=== PATIENT | male | born 1955 | race Caucasian/White ===

== ENCOUNTER 2018-07-20 07:14 | Inpatient (IN) ==
--- NOTE | 2018-06-23 08:39 | PAT Medication Instructions ---
Medication Instructions Date of Service June 23, 2018 Home Medications coenzyme Q10 [CoQ-10] 100 mg PO HS ibuprofen [Advil] 600 mg PO QID PRN lisinopril-hydrochlorothiazide 1 tab PO HS meloxicam [Mobic] 15 mg PO DAILY PRN metoprolol tartrate 25 - 50 mg PO Q8H PRN simvastatin 20 mg PO HS ASK your surgeon for instructions ibuprofen [Advil] 600 mg PO QID PRN meloxicam [Mobic] 15 mg PO DAILY PRN STOP taking 2 weeks before surgery coenzyme Q10 [CoQ-10] 100 mg PO HS Take morning of surgery With a small sip of water, OTHERWISE NOTHING TO EAT OR DRINK AFTER MIDNIGHT: metoprolol tartrate 25 - 50 mg PO Q8H PRN (if needed) Take evening before surgery lisinopril-hydrochlorothiazide 1 tab PO HS metoprolol tartrate 25 - 50 mg PO Q8H PRN (if needed) simvastatin 20 mg PO HS Other Notes If you have any questions please call us at [phone] or [phone] or [phone] or [phone]
--- NOTE | 2018-06-23 11:30 | Anesthesiology Consultation ---
Date of Service June 23, 2018 Assessment & Plan (1) Encounter for pre-operative examination: Chart Review Chart Review: Acceptable Risk for Surgery and Patient seen in Pre Admission Testing Cardiac Clearance 07/15/18: "He is currently stable and asymptomatic from a cardiovascular standpoint with no anginal symptoms occurring at greater than 4 metastases of activity. He has no evidence of CHF or significant valvular abnormality. His heart rate and blood pressure well controlled. Given this information, the patient is at an acceptable risk to proceed with upcoming surgery without any additional cardiovascular testing or intervention." PCP clearance 07/03: R CSI class I risk. 3.9% 30-day risk of , DE, or cardiac arrest. Acceptable risk for surgery pending clearance from cardiology visit on 07/15/2018. Teaching & Discussion Instructed NPO after midnight before surgery, except medications with 15 cc of water. Medication instructions provided according to the PAT guidelines. History Surgery Operation Date: 07/20/18 07:00 Proposed Procedures p Left Anterior Total Hip Arthroplasty - Darrell Alonzo DO Operation Date: 07/20/18 13:00 Proposed Procedures p Left Total Hip Arthroplasty Uncemented - Darrell Alonzo DO Height/Weight Height: 6 ft 1 in Weight: 97.9 kg Allergies Allergy/AdvReac Type Severity Reaction Status Date / Time No Known Allergies Allergy Verified 06/19/18 10:25 Medications Home Medications Medication Instructions Recorded Confirmed Last Taken coenzyme Q10 [CoQ-10] 100 mg PO HS 06/19/18 06/19/18 Unknown ibuprofen [Advil] 600 mg PO QID PRN 06/19/18 06/19/18 Unknown lisinopril-hydrochlorothiazide 1 tab PO HS 06/19/18 06/19/18 Unknown meloxicam [Mobic] 15 mg PO DAILY PRN 06/19/18 06/19/18 Unknown metoprolol tartrate 25 - 50 mg PO Q8H PRN 06/19/18 06/19/18 Unknown simvastatin 20 mg PO HS 06/19/18 06/19/18 Unknown Past Medical History Medical History Asthma HX EXERCISE INDUCED-NOT A RECENT PROBLEM-NO INHALERS BPH (benign prostatic hyperplasia) GERD (gastroesophageal reflux disease) Hyperlipidemia Hypertension Migraine HX Osteoarthritis Palpitation FOLLOWS WITH DR HOBBS. SYMPTOMATIC PVCS, METOPROLOL PRN. Past Family History Family History Uncle Family history of diabetes mellitus Past Surgical History Surgical History Cancer LEFT WRIST-REMOVAL GROWTH History of colonoscopy X 2 History of thymectomy 9 YRS AGO-BENIGN History of tonsillectomy Past Anesthesia History No Hx of Anesthesia Complications and No Family Hx of Anesthesia Complications *pt recalls having ineffective epidural for post op pain with thymectomy ~9 yrs ago. History of PONV No Motion Sickness Screening History of Motion Sickness: No Social History Smoking Status: Former smoker Do You Dip or Chew Tobacco: No Smoking End Date: QUIT 32 YRS AGO Hx Alcohol Use: Yes Alcohol type: beer, wine and hard liquor alcohol intake frequency: a few times a week Hx Substance Use: No substance use type: marijuana ("very rarely") Exercise / Class Metabolic Activity 1 > 8 Run/Swim/Ski/Tennis (Pt reports being very active, recently more limited by hip pain) Review of Systems Pt denies any recent chest pain, shortness of breath, cough, fever. +URI in 05/2018, "just starting to feel back to 100%; +palpitations once/wk Physical Exam Vital Signs BP: 120/80 P: 59bpm SPO2: 96% RA T: 98.0 F R: 16 ENMT Mouth: + dental restorations (one cap on molar); no chipped teeth and no loose teeth Thyromental Distance: > or= 3.5 Finger Breadths (3.5) Mallampati Class: I Mouth / Teeth: 1. crown Neck normal visual inspection; neck extension not limited Respiratory normal respiratory effort Auscultation: lungs clear to auscultation bilaterally Cardiovascular Rate/Rhythm: regular rate and regular rhythm Heart Sounds: no murmur Vessels: no carotid bruit Extremities: no edema Testing Electrocardiogram Date: 10/29/17 Findings: + SB @ (49 with 1st degree AV block and occ. PACs) Chest X-Ray Date: 06/23/18 Findings: + NAD Stress Test Date: 07/11/14 Type: exercise Resting EF: 75% Negative exercise stress echocardiogram for ischemia at 75% maximum predicted heart rate. The patient complained of no exercise-induced chest pain. There were no EKG changes. Normal blood pressure response with exercise. There was no significant ectopy at rest and with exercise. The baseline echo notes normal left ventricular function with mild mitral regurgitation. Laboratory Results 06/23/18 11:39 06/23/18 11:39 Blood Type B Positive 06/23/18 11:39 Antibody Screen NEGATIVE 06/23/18 11:39 PT 10.3 Seconds (9.0-12.0) 06/23/18 11:39 INR 1.0 (0.9-1.1) 06/23/18 11:39 APTT 24.6 Seconds (21.0-31.0) 06/23/18 11:39 Hemoglobin A1c 5.0 % (4.5-5.6) 06/23/18 11:39 Urine Color Dark Yellow 06/23/18 Unknown Urine Appearance Clear (Clear) 06/23/18 Unknown Urine pH 6.0 (4.5-7.5) 06/23/18 Unknown Ur Specific Pratt 1.027 (1.000-1.030) 06/23/18 Unknown Urine Protein Negative (Negative) 06/23/18 Unknown Urine Glucose (UA) Negative (Negative) 06/23/18 Unknown Urine Ketones Trace (Negative) H 06/23/18 Unknown Urine Nitrite Negative (Negative) 06/23/18 Unknown Ur Leukocyte Esterase Negative (Negative) 06/23/18 Unknown 06/23/18 Unknown Urine Culture - Final Urine,Clean Catch No growth - less than 1,000 colonies/mL.
--- NOTE | 2018-06-23 12:24 | XRay Report ---
XR chest Pre-admission PA/Lat CLINICAL HISTORY: Preoperative evaluation. COMPARISON STUDY: Chest radiograph June 20, 2012. FINDINGS: There are median sternotomy wires. No pneumothorax or pleural effusion is noted. There is n o consolidation or evidence for pulmonary edema. Cardiomediastinal silhouette is stable. Appearance o f the chest is unchanged. IMPRESSION: No acute cardiopulmonary findings. Electronically signed by: Norbert Ramirez M.D. 06/23/2018 12:23 PM
[2018-06-23 13:29] LABS: Basophils # (auto) 0.01 K/uL (0-0.2); Basophils % (auto) 0.2 %; Eosinophils # (auto) 0.23 K/uL (0-0.5); Eosinophils % (auto) 4.5 %; Hematocrit (blood only) 40.9 % (42-52); Hemoglobin 14.4 g/dL (14.0-18.0); Immature Granulocytes # (auto) 0.01 K/uL (0.00-0.02); Immature Granulocytes % (auto) 0.2 %; Lymphocytes # (auto) 1.41 K/uL (1.2-3.4); Lymphocytes % (auto) 27.6 %; Mean Corpuscular Hgb Conc 35.2 g/dL (32-36); Mean Corpuscular Volume 89.1 fL (80-100); Mean Platelet Volume 10.2 fL (7.4-10.4); Monocytes # (auto) 0.46 K/uL (0.11-0.59); Neutrophils # (auto) 2.98 K/uL (1.4-6.5); Neutrophils % (auto) 58.5 %; Platelet Count 222 K/uL (130-400); RDW Coefficient of Variation 11.9 % (11.5-14.5); RDW Standard Deviation 38.4 fL (36.4-46.3); Red Blood Count 4.59 M/uL (4.7-6.1)
[2018-06-23 13:32] LABS: Appearance Urine Clear (Clear); Bilirubin Urine Negative (Negative); Blood Urine Negative (Negative); Color Urine Dark Yellow; Glucose Urine UA Negative (Negative); Ketones Urine Trace (Negative); Leukocyte Esterase Urine Negative (Negative); Nitrite Urine Negative (Negative); Protein Urine Negative (Negative); Specific Gravity Urine 1.027 (1.000-1.030); Urobilinogen Urine Negative (Negative)
[2018-06-23 13:43] LABS: Partial Thromboplastin Ratio 0.9; Partial Thromboplastin Time 24.6 Seconds (21.0-31.0); Prothrombin Time 10.3 Seconds (9.0-12.0)
[2018-06-23 13:58] LABS: Albumin Level 3.8 gm/dl (3.4-5.0); BUN Creatinine Ratio 16.1 (10-20); Calcium 8.3 mg/dl (8.5-10.1); Creatinine Clr Calc Pharmacy 81.7 ml/min; Est GFR (African American) 80.3; Est GFR (Non-African American) 69.3
[2018-06-23 14:05] LABS: Estimated Average Glucose 97 mg/dl
--- NOTE | 2018-07-19 10:17 | History & Physical Report ---
Date of Service July 19, 2018 Assessment & Plan (1) Degenerative joint disease (DJD) of hip: I have indicated the patient for left anterior total hip replacement. The risks, benefits and complications of surgery were explained to the patient which include but not limited to infection, acute blood loss, DVT/PE, injury to nerves, vessels, bone, soft tissue, arthrofibrosis, chronic pain, failure of the prosthesis, hip dislocation, leg length discrepancy, need for additional surgery, cardiac and pulmonary events and . The patient wished to proceed with surgery and informed consent was obtained at this time. We will plan for ASA 325mg BID post-operatively for DVT prophylaxis. Upon discharge the patient will be discharged home with home health services. Appropriate clearances by PCP and cardiology were obtained. History of Present Illness Chief Complaint: Left hip pain/djd Primary Care Provider: Allen Bowman The patient is a 63 year old male who presents with complaints of severe left hip pain and DJD. The patient has failed outpatient conservative treatments to this point which included NSAIDS and a home exercise, walking program. Patient had previous declined IA hip injections. The patient's pain and limited function have progressed to the point where they severely hinder their activities of daily living and they no longer tolerate exercise programs. They are requesting to proceed with total hip replacement surgery. Allergies Allergy/AdvReac Type Severity Reaction Status Date / Time No Known Allergies Allergy Verified 06/19/18 10:25 Home Medications Home Medications Medication Instructions Recorded Confirmed Type coenzyme Q10 [CoQ-10] 100 mg PO HS 06/19/18 07/20/18 History ibuprofen [Advil] 600 mg PO QID PRN 06/19/18 07/20/18 History lisinopril-hydrochlorothiazide 1 tab PO HS 06/19/18 07/20/18 History meloxicam [Mobic] 15 mg PO DAILY PRN 06/19/18 07/20/18 History metoprolol tartrate 25 - 50 mg PO Q8H PRN 06/19/18 06/19/18 History simvastatin 20 mg PO HS 06/19/18 07/20/18 History Past Med/Surg History Medical History Asthma HX EXERCISE INDUCED-NOT A RECENT PROBLEM-NO INHALERS BPH (benign prostatic hyperplasia) GERD (gastroesophageal reflux disease) Hyperlipidemia Hypertension Migraine HX Osteoarthritis Palpitation FOLLOWS WITH DR HOBBS. SYMPTOMATIC PVCS, METOPROLOL PRN. Surgical History Cancer LEFT WRIST-REMOVAL GROWTH History of colonoscopy X 2 History of thymectomy 9 YRS AGO-BENIGN History of tonsillectomy Family History Uncle Family history of diabetes mellitus Social History Preferred Language: [place] Communication Ability: Effective Side Door Worker Required: No Beliefs That Will Affect Care: None Current Living Situation: Spouse Other Information That Helps Us Care for You: No Feels Safe at Home: Yes Safety Concerns: Feels Safe At This Time Smoking Status: Former smoker Hx Alcohol Use: Yes Hx Substance Use: No Review of Systems All systems reviewed & are unremarkable except as noted in HPI & below Physical Exam Physical Exam: LLE NVSI +EHL/FHL/TA/GS SILT grossly, +2 DP pulse, compartments soft NT, limited painful ROM of the hip. Antalgic gait. Constitutional: WD/WN, vitals as above Eyes: PERRL, conjunctivae normal, anicteric sclerae ENMT: external ear and nose normal, oropharynx normal Neck: trachea midline, no thyromegaly Respiratory: normal respiratory effort, lungs clear to auscultation Cardiovascular: RRR, no murmur, no edema Gastrointestinal (Abdomen): normal bowel sounds, soft, nontender, no hepatosplenomegaly Musculoskeletal: no cyanosis or clubbing, extremities motor strength 5/5 Skin: no rashes, warm and dry Neurologic: patellar DTR's 2+ bilat, sensation intact Psychiatric: A+Ox3, euthymic affect Lymphatic: no cervical or axillary lymphadenopathy Results & Data Diagnostic Findings Multiple views of the hip demonstrates severe DJD with complete loss of the joint space. +osteophytes, +sclerosis, +subchondral cysts.
[~2018-07-20 07:14] MED LIST: ACETAMINOPHEN 500 MG TAB PO SCH; CEFAZOLIN 2000MG 2,000 MG/15 ML SYR IV SCH; CeleBREX 200 MG CAP PO SCH; FAMOTIDINE 20 MG TAB PO SCH; GABAPENTIN 300 MG PO SCH; LR 500ML BOLUS, THEN 15ML/HR IV SCH; MIDAZOLAM HCL 1 MG/ML 2ML VIAL ONE; ROPIVACAINE 0.5% HCL/PF 150 MG, BUPIVACAINE 0.5% MPF 30 ML, EPINEPHrine 30MG/30ML (OR U... INFIL SCH; TRANEXAMIC ACID 1,000 MG **IV Intra-op IV SCH; TRANEXAMIC ACID 1,000 MG **IV Pre-op IV SCH; dexAMETHasone 4 MG TAB PO SCH; fentaNYL citrate 100 MCG/2 ML VIAL ONE
[2018-07-20] MEDS ORDERED: BACITRACIN INJ 50,000 UNIT VIAL ONE (07:23)
[2018-07-20] MEDS ORDERED: ORTHO JOINT ANESTHETIC ONE (07:23)
[2018-07-20] MEDS ORDERED: POVIDONE-IODINE OP SOLN 30 ML BTL ONE (07:23)
[2018-07-20] MEDS ORDERED: BUPIVACAINE 0.5 % 5 MG/1 ML PF 10ML VIAL ONE (07:26)
[2018-07-20] MEDS ORDERED: ePHEDrine sulfate 50 MG/ML AMP IV PRN (08:07)
[2018-07-20] MEDS ORDERED: ATROPINE SULFATE 0.1 MG/ML 10ML SYR IV PRN (08:07)
[2018-07-20] MEDS ORDERED: fentaNYL citrate 100 MCG/2 ML VIAL IV PRN (08:07)
[2018-07-20] MEDS ORDERED: LIDOCAINE HCL 2% 2 ML VIAL/AMP(20MG/ML) INFIL ONE (08:24)
[2018-07-20] MEDS ORDERED: ONDANSETRON INJ 2 MG/ML 2 ML VIAL ONE (08:24)
[2018-07-20] MEDS ORDERED: PROPOFOL IV EMULSION 10 MG/ML 20 ML VIAL IV ONE ×4 (08:24→11:08)
--- NOTE | 2018-07-20 08:52 | History & Physical Bridge Note ---
Date of Service July 20, 2018 History & Physical Bridge Note I have examined the patient, reviewed the History & Physical and in the interval since the performance of the History & Physical I have noted the following changes of clinical significance: no changes noted
[2018-07-20] MEDS ORDERED: ePHEDrine sulfate 50 MG/ML SYR ONE (09:24)
[2018-07-20] MEDS ORDERED: PHENYLEPHRINE 100MCG/ML 5ML SYR ONE (09:43)
--- NOTE | 2018-07-20 11:04 | Post Operative Brief Note ---
Immediate Post Op Note v1 Date of Surgery July 20, 2018 Pre & Post Diagnosis Operation Date: 07/20/18 09:00 Pre-Op Diagnosis: Left Hip Degenerative Joint Disease Post-Op Diagnosis: Left Hip Degenerative Joint Disease Operation Date: 07/20/18 13:00 <No data on this case meets the specified criteria> Procedure Operation Date: 07/20/18 09:00 Actual Procedures p Left Anterior Total Hip Arthroplasty--Uncemented(Left) - Darrell Alonzo DO Operation Date: 07/20/18 13:00 <No data on this case meets the specified criteria> Surgeon Darrell Alonzo DO Fiber Optic Technician Addy Brandon Estimated Blood Loss 105 Findings Consistent with Post-Op Diagnosis Fluids 1400 cc LR Specimens femoral head Anesthesia Type Spinal MAC Complications none Disposition Disposition: Recovery Room Overlapping Procedure I was present for: the critical portions of procedure. I was immediately available: during the entire case. Back up surgeon: was not required during procedure.
--- NOTE | 2018-07-20 11:08 | Fluoroscopy Report ---
FL hip LT 1V HISTORY: 63 years-old Male LEFT ANTERIOR HIP left hip total joint arthroplasty COMPARISON: None available TECHNIQUE: 2 spot fluoroscopic images of the left hip were obtained utilizing 51.0 seconds fluoroscop y time FINDINGS: Left hip total joint arthroplasty demonstrates satisfactory alignment. Expected postoperative soft ti ssue swelling with deep tissue air. Overlying surgical drainage catheter noted. No acute fracture raji ntified. Advanced osteoarthritis of the right hip is partially imaged. IMPRESSION: Left hip total joint arthroplasty demonstrates satisfactory alignment. The above report was generated using voice recognition software. It may contain grammatical, syntax o r spelling errors. Electronically signed by: Frederick Raman M.D. 07/20/2018 11:07 AM
--- NOTE | 2018-07-20 11:28 | Operative Report ---
Post Operative Report Pre & Post Diagnosis Operation Date: 07/20/18 09:00 Pre-Op Diagnosis: Left Hip Degenerative Joint Disease Post-Op Diagnosis: Left Hip Degenerative Joint Disease Operation Date: 07/20/18 13:00 <No data on this case meets the specified criteria> Procedure Operation Date: 07/20/18 09:00 Actual Procedures p Left Anterior Total Hip Arthroplasty--Uncemented(Left) - Darrell Alonzo DO Operation Date: 07/20/18 13:00 <No data on this case meets the specified criteria> Surgeon Darrell Alonzo DO Tablet Repair Addy Brandon Estimated Blood Loss 105 Findings Consistent with Post-Op Diagnosis Specimens femoral head Anesthesia Type Spinal MAC Complications none Disposition Disposition: Recovery Room Indications The patient is a 63-year-old male who presents with severe progressive left hip DJD who has failed outpatient conservative treatments. I indicated the patient for a anterior total hip replacement and the risks and benefits were explained in detail which include but not limited to infection, bleeding, blood clot, damage to surrounding bone, nerves, vessels, soft tissue, hip dislocation, failure of the prosthesis, leg length discrepancy, need for additional surgery and . The patient agreed to proceed with replacement of the hip and informed consent was obtained. Appropriate clearances were obtained. Description of Procedure COMPONENTS USED: [employer] hip system: Acetabulum size 54, femur size 10 high offset, femoral head 36-3, liner 54 x 36, acetabular screw 25 mm. DESCRIPTION OF PROCEDURE: Following satisfactory spinal anesthesia, the patient was placed supine on the OR table. The right leg was placed in the well leg oleary and the left leg in the traction device. The left leg was prepared with ChloraPrep and draped sterilely. A surgical timeout was performed, patient identified in site ayana confirmed. Appropriate antibiotics were given. A standard anterior approach in the interval between the sartorius and tensor muscles was performed. Dissection was carried down through subcutaneous tissues. Electrocautery was utilized for hemostasis. Circumflex femoral v essels were identified, tied and ligated. The anterior capsular fat pad was removed and the capsulotomy was performed revealing the arthritic femoral neck and head. A femoral neck cut was made with reciprocating saw and the bone fragments removed. The acetabular self-retraining retractor was placed. Acetabular reaming was completed under fluoroscopic guidance, a 54 shell was impacted into an anatomic position and secured with a dome screw. Local anesthetic was placed and following irrigation, the polyethylene liner was placed. The femur was placed into position of external rotation, extension and adduction. Femoral canal was prepared up to the size 10 high offset. Trial reduction with a 36-3 neck length head showed good soft tissue tension, leg lengths restored, and good fit and fill of the proximal canal using fluoroscopic landmarks. The hip was dislocated. The trial component was removed. The final implant was placed. The hip was irrigated with sterile saline solution and reduced. A Betadine soak was performed. After 3 minutes, the hip was once more irrigated with copious sterile saline solution with bacitracin. Aixa-incisional soft tissue was injected utilizing [place] [employer] which includes a combination of Ropivicaine 0.5% 150mg, Bupivicaine 0.5%/Epinephrine 1:200,000 30ml, Toradol 30mg, Dexamethasone 4mg, Ketamine 10mg, Clonidine 100mcg and NSS 30ml solution. The capsule was then closed with 1-0 Vicryl interrupted figure of eight sutures. The fascia was closed with a running suture of #1 Vicryl, the subcutaneous tissues with 2-0 Vicryl and the skin with a running subcuticular stitch of 3-0 V-Loc. Dermabond prineo and a dry dressing, Arelis incisional VAC were applied. The patient tolerated the procedure well and was transported to PACU in stable condition. Due to the complex nature of the procedure, the entire surgery was performed with the operational assistance of Addy Brandon PA-C. The library media assistant, under direct supervision, was involved in the actual performance of all aspects of the surgical procedure including patient positioning, hemostasis, tissue retraction, instrument management and wound closure. I attest to the content of the Intraoperative Record and any orders documented therein. Any exceptions are noted below.
--- NOTE | 2018-07-20 11:50 | XRay Report ---
XR hip 1V LT w pelvis CLINICAL HISTORY: IN PACU - A/P PELVIS and LATERAL HIP postoperative COMPARISON: None. DISCUSSION: Anatomic alignment post total left hip arthroplasty. Good contact between prosthetic and the Bone. No evidence for acetabular protrusion expected postoperative soft tissue change IMPRESSION: Anatomic alignment post total left hip arthroplasty. The above report was generated using voice recognition software. It may contain grammatical, syntax or spelling errors. Electronically signed by: Pedro Bassett M.D. 07/20/2018 11:48 AM
[2018-07-20] MEDS ORDERED: METOCLOPRAMIDE HCL INJ 5 MG/ML 2 ML VIAL IV PRN (13:05)
[2018-07-20] MEDS ORDERED: BISACODYL 10 MG SUPP PR PRN (13:05)
[2018-07-20] MEDS ORDERED: MAGNESIUM HYDROXIDE SUSP 30 ML UDC PO PRN (13:05)
[2018-07-20] MEDS ORDERED: METOPROLOL TARTRATE 25 MG TAB PO PRN (13:05)
[2018-07-20] MEDS ORDERED: HYDROmorphone INJ 0.5 MG/0.5 ML SYR IV PRN (13:05)
[2018-07-20] MEDS ORDERED: ONDANSETRON INJ 2 MG/ML 2 ML VIAL IV PRN (13:05)
[2018-07-20] MEDS ORDERED: NALOXONE HCL 0.4 MG/1 ML VIAL/CARP IV PRN (13:05)
[2018-07-20] MEDS ORDERED: OXYCODONE HCL IR 5 MG TAB (IMMEDIATE RELEASE) PO PRN (13:05)
--- NOTE | 2018-07-20 13:17 | Anesthesiology Progress Note ---
Date of Service July 20, 2018 Anesthesia Post Procedure Vital Signs Vital Signs: Temp Pulse Pulse Resp BP Pulse Ox 07/20/18 12:55 36.4 C L 59 L 16 108/69 07/20/18 12:40 36.4 C L 57 L 15 107/70 98 07/20/18 12:30 61 18 115/75 99 07/20/18 12:20 59 L 20 117/70 98 07/20/18 12:10 70 14 112/71 99 07/20/18 12:00 60 13 108/72 98 07/20/18 11:50 58 L 14 107/71 97 07/20/18 11:40 56 L 12 106/70 98 07/20/18 11:30 36.3 C L 56 L 16 106/74 97 07/20/18 07:46 36.9 C 59 L 18 126/89 97 Pain Intensity Left Hip: Pain Intensity: 0 Notes Mental Status: alert / awake / arousable Patient Amnestic to Procedure: Yes Nausea / Vomiting: adequately controlled Pain: adequately controlled Airway Patency, RR, SpO2: stable & adequate BP & HR: stable & adequate Hydration State: stable & adequate Anesthetic Complications: no major complications apparent and Pt Satisfied with anesthetic care
[2018-07-20] MEDS: SODIUM CHLORIDE 0.9% 1000ML 1,000 ML IV SCH (14:18)
[2018-07-20] MEDS: KETOROLAC TROMETHAMINE 15 MG/ML VIAL IV SCH ×2 (14:19→20:16)
[2018-07-20] MEDS: ACETAMINOPHEN 500 MG TAB PO SCH ×2 (14:19→22:06)
--- NOTE | 2018-07-20 16:55 | Orthopedic Progress Note ---
Date of Service July 20, 2018 Assessment & Plan (1) Degenerative joint disease (DJD) of hip: s/p Left anterior GRICELDA -ancef x 24 -DVT ppx - SCDs, TEDS, ASA BID -WBAT LLE -PT/OT -PO XR - well aligned well fixed prothesis without fracture/dislocation -am labs -DC planning - Home with HH Subjective Post Operative Progress Note Patient seen sitting up in bed, comfortable, denies complaints, pain well controlled, no acute issues. Physical Exam Vital Signs (Past 24 Hours): Last Vital Signs Temp 36.3 C L 07/20/18 15:53 Pulse 70 07/20/18 15:53 Resp 18 07/20/18 15:53 BP 108/70 07/20/18 15:53 Pulse Ox 95 07/20/18 15:53 Physical Exam: Limited exam secondary to spinal anesthesia, + 2 DP pulse, compartment soft NT, Dressing CDI Constitutional: WD/WN, vitals as above
[2018-07-20] MEDS: CEFAZOLIN 2000MG 2,000 MG/15 ML SYR IV SCH (17:50)
[2018-07-20] MEDS: DOCUSATE SODIUM 100 MG CAP PO SCH (20:18)
[2018-07-20] MEDS ORDERED: LISINOPRIL/HCTZ 10/12.5MG TAB PO SCH (21:00)
[2018-07-20] MEDS ORDERED: SENNA 8.6 MG TAB PO SCH (21:00)
[2018-07-20] MEDS ORDERED: SIMVASTATIN 20 MG TAB PO SCH (21:00)
[2018-07-21] MEDS: CEFAZOLIN 2000MG 2,000 MG/15 ML SYR IV SCH (00:35)
[2018-07-21] MEDS: SODIUM CHLORIDE 0.9% 1000ML 1,000 ML IV SCH (00:36)
[2018-07-21] MEDS: KETOROLAC TROMETHAMINE 15 MG/ML VIAL IV SCH ×2 (02:16→07:13)
[2018-07-21] MEDS: ACETAMINOPHEN 500 MG TAB PO SCH ×2 (06:01→13:52)
[2018-07-21 06:04] LABS: Basophils # (auto) 0.01 K/uL (0-0.2); Basophils % (auto) 0.1 %; Hematocrit (blood only) 35.4 % (42-52); Hemoglobin 12.7 g/dL (14.0-18.0); Immature Granulocytes # (auto) 0.02 K/uL (0.00-0.02); Immature Granulocytes % (auto) 0.1 %; Lymphocytes # (auto) 0.85 K/uL (1.2-3.4); Lymphocytes % (auto) 6.3 %; Mean Corpuscular Hgb Conc 35.9 g/dL (32-36); Mean Corpuscular Volume 87.2 fL (80-100); Mean Platelet Volume 9.6 fL (7.4-10.4); Monocytes # (auto) 0.86 K/uL (0.11-0.59); Monocytes % (auto) 6.4 %; Neutrophils # (auto) 11.72 K/uL (1.4-6.5); Neutrophils % (auto) 87.1 %; Platelet Count 197 K/uL (130-400); RDW Coefficient of Variation 11.8 % (11.5-14.5); RDW Standard Deviation 37.3 fL (36.4-46.3); Red Blood Count 4.06 M/uL (4.7-6.1); White Blood Count 13.46 K/uL (4.8-10.8)
[2018-07-21 06:24] LABS: BUN Creatinine Ratio 18.2 (10-20); Calcium 8.3 mg/dl (8.5-10.1); Creatinine Clr Calc Pharmacy 77.2 ml/min; Est GFR (African American) 75.4; Potassium 3.7 mmol/L (3.5-5.1)
--- NOTE | 2018-07-21 08:00 | Orthopedic Progress Note ---
Date of Service July 21, 2018 Assessment & Plan (1) Degenerative joint disease (DJD) of hip: Left anterior GRICELDA POD#1 -ancef x 24 -DVT ppx - SCDs, TEDS, ASA BID -WBAT LLE -PT/OT -PO XR - well aligned well fixed prothesis without fracture/dislocation -am labs - Hgb 12.7 -DC planning - Home with HH today. Patient seen and examined, agree with above assessment and plan. Subjective Post operative progress note Patient is sitting up in chair at the bedside. He has no complaints this morning. Pain is controlled. He states that he was up and ambulating the hallways last night. He denies shortness of breath, chest pain, lightheadednes s. He states he is planning on having home health services upon discharge and is hoping to go home today. Physical Exam Vital Signs (Past 24 Hours): Last Vital Signs Temp 36.4 C L 07/21/18 07:02 Pulse 65 07/21/18 07:02 Resp 16 07/21/18 07:02 BP 109/67 07/21/18 07:02 Pulse Ox 95 07/21/18 07:02 Physical Exam: Prevena dressing is clean dry and intact. He has no overt drainage in the collection unit. A small area of bruising is noted on the medial edge of the dressing. Calves are soft and nontender. Neurovascular is intact. Hip appears located. LLE NVSI +EHL/FHL/TA/GS SILT grossly, +2 DP pulse, compartments soft NT, dressing cdi.
--- NOTE | 2018-07-21 08:09 | Anesthesiology Progress Note ---
Date of Service July 21, 2018 Anesthesia Post Procedure Vital Signs Vital Signs: Temp Pulse Pulse Pulse Pulse Resp BP 07/21/18 07:02 36.4 C L 65 16 109/67 07/21/18 03:23 36.7 C 73 14 109/62 07/20/18 23:21 36.5 C 90 14 118/71 07/20/18 20:00 36.6 C 84 18 118/73 07/20/18 15:53 36.3 C L 70 18 108/70 07/20/18 14:59 36.3 C L 65 18 108/67 07/20/18 13:55 57 L 16 104/65 07/20/18 13:25 53 L 16 118/77 07/20/18 12:55 36.4 C L 59 L 16 108/69 07/20/18 12:40 36.4 C L 57 L 15 107/70 07/20/18 12:30 61 18 115/75 07/20/18 12:20 59 L 20 117/70 07/20/18 12:10 70 14 112/71 07/20/18 12:00 60 13 108/72 07/20/18 11:50 58 L 14 107/71 07/20/18 11:40 56 L 12 106/70 07/20/18 11:30 36.3 C L 56 L 16 106/74 Pulse Ox 07/21/18 07:02 95 07/21/18 03:23 96 07/20/18 23:21 93 07/20/18 20:00 92 07/20/18 15:53 95 07/20/18 14:59 95 07/20/18 13:55 97 07/20/18 13:25 97 07/20/18 12:55 07/20/18 12:40 98 07/20/18 12:30 99 07/20/18 12:20 98 07/20/18 12:10 99 07/20/18 12:00 98 07/20/18 11:50 97 07/20/18 11:40 98 07/20/18 11:30 97 Pain Intensity Left Hip: Pain Intensity: 3 Notes Mental Status: alert / awake / arousable and participated in evaluation Patient Amnestic to Procedure: Yes Nausea / Vomiting: adequately controlled Pain: adequately controlled Airway Patency, RR, SpO2: stable & adequate BP & HR: stable & adequate Hydration State: stable & adequate Neuraxial Anesthesia: was administered and sensory block resolved Anesthetic Complications: no major complications apparent and Pt Satisfied with anesthetic care
[2018-07-21] MEDS: DOCUSATE SODIUM 100 MG CAP PO SCH (08:46)
[2018-07-21] MEDS ORDERED: ASPIRIN 325 MG ECTAB PO SCH (09:00)
[2018-07-21] MEDS ORDERED: MULTIVITAMIN TAB PO SCH (09:00)
[2018-07-21] MEDS ORDERED: CeleBREX 200 MG CAP PO SCH (21:00)
--- NOTE | 2018-07-21 23:25 | Discharge Summary ---
Date of Service July 21, 2018 Admission HPI Per Admitting Provider The patient is a 63 year old male who presents with complaints of severe left hip pain and DJD. The patient has failed outpatient conservative treatments to this point which included NSAIDS and a home exercise, walking program. Patient had previous declined IA hip injections. The patient's pain and limited function have progressed to the point where they severely hinder their activities of daily living and they no longer tolerate exercise programs. They are requesting to proceed with total hip replacement surgery. Principal Diagnosis Left anterior total hip replacement Discharge Exam LLE NVSI +EHL/FHL/TA/GS SILT grossly, +2 DP pulse, compartments soft NT, dressing cdi. Constitutional WD/WN, vitals as above Eyes PERRL, conjunctivae normal, anicteric sclerae ENMT external ear and nose normal, oropharynx normal Neck trachea midline, no thyromegaly Respiratory normal respiratory effort, lungs clear to auscultation Cardiovascular RRR, no murmur, no edema Gastrointestinal (Abdomen) normal bowel sounds, soft, nontender, no hepatosplenomegaly Musculoskeletal no cyanosis or clubbing, extremities motor strength 5/5 Skin no rashes, warm and dry Neurologic patellar DTR's 2+ bilat, sensation intact Psychiatric A+Ox3, euthymic affect Lymphatic no cervical or axillary lymphadenopathy Discharge Data Allergies Allergy/AdvReac Type Severity Reaction Status Date / Time No Known Allergies Allergy Verified 06/19/18 10:25 Consultations 07/21/18 08:00 Consult Case Management - Discharge Planning Routine Procedures Performed Operation Date: 07/20/18 09:00 Actual Procedures p Left Anterior Total Hip Arthroplasty--Uncemented(Left) - Darrell Alonzo DO Operation Date: 07/20/18 13:00 <No data on this case meets the specified criteria> Ordered Studies 07/20/18 09:00 FL fluoroscopy <1hr Routine FL hip LT 1V Routine Hospital Course (1) Degenerative joint disease (DJD) of hip: The patient is a 63 -year-old male who presents with long standing history of severe left hip DJD and failed outpatient conservative treatments including NSAIDs, bracing, injections and home walking/exercise program. The patient's symptoms have progressed to the point where it has been difficult to perform even normal activities of daily living. I indicated the patient for a left anterior total hip arthroplasty, the risks, benefits and complications of the procedure include but not limited to infection, bleeding, damage to bone, nerves, vessels, surrounding soft tissue, may develop blood clots, loss of function, leg length discrepancy, dislocation, failure of the components, loosening of the components, the need for additional surgery and . The patient wished to proceed with surgery at this time and informed consent was obtained. Hospital Course: On 07/20/18 the patient was taken to the operating room, adequate anesthesia administered and underwent a left anterior total hip arthroplasty. The patient tolerated the procedure well and was taken to the PACU in stable condition. Post-operatively the patient was started on a DVT ppx medication and given appropriate IV antibiotics. Consults were placed to physical therapy, occupational therapy and case management. On POD#1, the patient did well overnight and their pain was well controlled. Labs were drawn and the Hgb was 12.7. The patient progressed well with PT. Dressings were changed at this time and the incision was clean, dry and intact. The patients hospital stay was relatively uneventful and they were deemed stable by the orthopedic team and consultants to be discharged home with HH on 07/21/18. Discharge Instructions: Upon discharge the patient may weight bear as tolerates through their operative extremity. They were instructed to keep the incision clean and dry at all times. The patient may shower but should not submerge the incision, avoid bathing, pools and hot tubes. The patient was given a script for pain medication and should take as instructed. The patient was given a script for DVT ppx ASA 325mg BID and should take as directed. The patient was instructed to not drive or travel for long distances until cleared to do so. If the patient develops any symptoms of fevers, chills, nausea, vomiting, increased redness, swelling, pain or drainage from the surgical site, they should notify the office and/or proceed to the nearest emergency room. The patient should follow up in 10-14 days after surgery for their routine post-operative follow-up appointment and should call the office to confirm the date and time. Left anterior GRICELDA POD#1 -ancef x 24 -DVT ppx - SCDs, TEDS, ASA BID -WBAT LLE -PT/OT -PO XR - well aligned well fixed prothesis without fracture/dislocation -am labs - Hgb 12.7 -DC planning - Home with HH today. Patient seen and examined, agree with above assessment and plan. Total Time Total Time Spent Total Time Spent (In Minutes): >60 minutes Total Time Includes: Examination of the Patient, Discharge Planning, Medication Reconciliation and Communication With Other Providers Discharge Plan Discharge Items Patient Disposition: Home - Home Health Services Reason For Visit: Left Hip Primary Osteoarthritis Discharge Diagnosis: Left total hip replacement Condition: Good Discharge Goals: Decrease discomfort, Improve disease control, Improve function, Increase independence and Therapeutic intervention Activity: Per 'Additional Instructions' section Lifting: Wait until after follow-up appointment Bathing Comment: No bathing, pools or hot tubs Sexual Activity: Wait until after follow-up appointment Exercise/Sports: Wait until after follow-up appointment Driving/Machine Use Comment: No driving till cleared by your surgeon Weightbearing: Left weightbearing Non-emergency contact: Primary Care Provider and Surgeon Call non-emergency contact if: you have any medication questions, your symptoms worsen, your pain is not controlled, your pain is worsening, your pain is unusual for you, your pain is concerning for you, you have a fever, your temperature is above 101, your wound has increased redness, your wound has increased drainage and your wound pain has increased Follow-up/Referrals: Allen Bowman [Primary Care Provider] - Diet: Regular Addtl Provider Instructions: ACTIVITY RECOMMENDATIONS: SELF CARE INSTRUCTIONS AFTER TOTAL HIP REPLACEMENT : Direct Anterior Approach Until the incision and soft tissues around your hip have healed, there is a possibility that the hip prosthesis could dislocate. A. Hip flexion ( Up & Down out of chair or steps ) may be difficult. This is normal. B. Numbness in front of the thigh is also normal for a few weeks. C. Use hand rails when walking on stairs. D. Wear low heeled shoes with non-slip soles. E. Be sure that your floors are free of things that could trip you - throw rugs, electrical cords, small objects. Avoid wet and waxed floors, especially with crutches and canes. F. Try to walk several times a day with rest periods between. G. Continue with all the exercises taught to you in the hospital. Again, make walking a part of your daily routine. SPECIAL CARE INSTRUCTIONS: VERY IMPORTANT TO READ AND REVIEW A. You may still be at risk for phlebitis and blood clots. 1. Wear surgical stockings (CARL hose) for 2 weeks after surgery to improve circulation and reduce swelling. 2. Take Aspirin 325mg twice daily for 4 weeks or as directed by your doctor. This is your blood thinner. 3. High risk patients may be prescribed a stronger blood thinner if necessary. 4. If you are on Coumadin normally, your family doctor/mining technician should monitor your blood work. Expect a phone call the day of or the day after bloodwork is drawn to adjust your dosage. B. You must take antibiotics before having dental work, bladder, bowel and other surgery. Your doctor will provide you with a permanent card to carry describing precautions. C. Call [facility] [place] if you have a fever, redness or swelling around the incision, cloudy drainage from incision, or sudden increase in pain in your hip, not relieved by your regular pain medication. D. Please call the office at if you have any concerns or questions about your operation or recovery. * YOU MAY SHOWER, NO TUB BATHS UNTIL CLEARED BY YOUR DOCTOR. - Keep an extra close eye on the top portion of your incision. Be sure to keep clean & dry. * WEAR CARL HOSE 20 HOURS PER DAY FOR 2 WEEKS. * YOU MAY PROGRESS FROM A WALKER, TO A CANE, TO INDEPENDENT AT YOUR OWN PACE. * MOST PATIENTS WILL HAVE HOME NURSING FOR THERAPY. IF YOU DECIDE TO DO OUTPATIENT PHYSICAL THERAPY, PLEASE SCHEDULE THIS 3 TIMES PER WEEK. * DERMABOND Prineo- This is a mesh tape dressing that is covered with glue. It should remain in place until the incision is properly healed, usually 10-14 days. This dressing is designed to naturally slough off. You may trim the excess mesh tape as it peels off. Incision may be briefly wet in a shower. Dry immediately by blotting with a clean, dry towel. Do not bath or swim until instructed by your doctor. Do not scratch, rub, or pick at the dressing. Do not apply any topical ointments or lotions until dressing is completely removed and/or instructed by your doctor. There may be a small piece of suture material at one end of your incision. Do not pull or trim this. If it is bothersome or catching on clothing, you may cover it with a band-aid. *PREVENA incisional vac is a special dressing covering your incision. This dressing provides a sterile dry environment while you are healing. The dressing is to be left in place for 7 days post-operatively. Your home nurse or surgeon will remove. If you develop any redness or blisters or have any questions notify your surgeon immediately. FOLLOW UP VISIT: If appointment is not already scheduled: Please call [facility] [place] to make a follow-up appointment for 2 weeks after your surgery at . Prescriptions: New acetaminophen [Pain Reliever] 500 mg Tablet 1,000 mg PO Q8 PRN (Reason: pain) Qty: 90 RF: 0 aspirin 325 mg Tablet,Delayed Release (Dr/Ec) 325 mg PO BID 28 Days Qty: 56 RF: 0 celecoxib [Celebrex] 200 mg Capsule 200 mg PO BID PRN (Reason: pain) Qty: 28 RF: 0 oxycodone 5 mg Tablet 5 mg PO Q6H MDD 6 tabs PRN (Reason: pain) Qty: 30 RF: 0 sennosides [Senokot] 8.6 mg Tablet 17.2 mg PO HS PRN (Reason: constipation) Qty: 28 RF: 0 Continued simvastatin 20 mg Tablet 20 mg PO HS RF: 0 lisinopril-hydrochlorothiazide 10-12.5 mg Tablet 1 tab PO HS RF: 0 coenzyme Q10 [CoQ-10] 100 mg Capsule 100 mg PO HS RF: 0 Discontinued meloxicam [Mobic] 15 mg Tablet 15 mg PO DAILY PRN (Reason: Pain) RF: 0 ibuprofen [Advil] 200 mg Tablet 600 mg PO QID PRN (Reason: Pain) RF: 0 metoprolol tartrate 25 mg Tablet 25 - 50 mg PO Q8H PRN (Reason: Palpitations) RF: 0 Stand-Alone Forms: [facility], [facility] Discharge Orders: Discharge Order (Routine); Ordered 07/21/18 Ordered By: Addy Brandon Admission Data Admit Date/Time: 07/20/18 11:35 Attending Provider: Darrell Alonzo Admit Provider: Darrell Alonzo Primary Care Provider: Allen Bowman Service: Surgical Services Other Interventions: Discharge Summary Assessment (RN) Last Done: 07/21/18 13:48 DC Date/Time DO NOT enter until pt leaves facility: 07/21/18 14:45
== END 2018-07-21 14:45 | disposition home health service (06) | DRG 470 ==
LOC: ASU 07:14 → 3E 11:35